=== PATIENT | male | born 1935 | race Caucasian/White ===

== ENCOUNTER 2025-02-28 14:27 | Inpatient (IN) | payer OTHER, SELFPAY ==
[2025-02-27 19:02] VITALS: BP 134/75
[2025-02-27 19:30] VITALS: BMI 21.6
--- NOTE | 2025-02-27 19:53 | ED.SKININJ ---
HPI-Injury
General
Chief Complaint: Skin Problem
Source: patient and family (son)
Exam Limitations: none
Time Seen by Provider: 02/27/25 19:17
Nursing documentation reviewed up to this point in time: agreed with
History of Present Illness-Injury
Is this injury a work related problem?: No
Is pt an associate of [facility]/[place]?: No
Initial Injury comments:
Patient states he was pulled down steps by dog 1 week ago. He sustained multiple abrasion and a laceration to left forearm. He was seen at [facility] and laceration was sutured. Today family reports arm is now red and swollen. Large amt of drainaged
coming from left forearm laceration site. Denies fever/chills. Brought to ED by son for eval.
Review of Systems
Review of Systems
Allergies reviewed?: Yes
All Other Systems: ROS reviewed and negative except as documented in HPI and ROS
Constitutional: Reports no symptoms
EENT: Reports no symptoms
Respiratory: Reports no symptoms
Cardiac: Reports no symptoms
ABD/GI: Reports no symptoms
: Reports no symptoms
Musculoskeletal: Reports joint pain (pain to left forearm)
Skin: Reports other (redness swelling and drainage for left forearm wounds)
Neurological: Reports no symptoms
Psychiatric: Reports no symptoms
Phy Exam
General Physical Exam
General Presentation: mild distress
General age: appears stated age
General Skin: warm and dry
General Habitus: elderly
General Mental: alert
Musculoskeletal Exam
Musculoskeletal Exam: neuro vasc intact
Skin Exam
Skin Exam: other (erythema swelling pain left forearm. Drainage from left forearm sutured wound)
Psychiatric Exam
Psychiatric Exam: normal mood/affect
Course
Orders/Labs/Results
Orders:
Orders
02/27/25 19:42
Forearm, Left 2 View [CR Forearm - Left 2 View] Urgent
Comment:
Reason For Exam: cellulitis
02/27/25 19:48
Vancomycin [Vancocin] 1,500 mg 0.9% Sodium Chloride 500 ml [Nss] 500 ml IV NOW
02/27/25 19:55
Complete Blood Count/With Diff Urgent
Comprehensive Metabolic Panel Urgent
Lactic Acid Urgent
Wound Culture [Wound/Abscess/Other Culture] Urgent
JJ Source: Arm
Specimen Description: Left
Date Specimen was Collected: 02/27/25
Time Specimen was Collected: 19:54
02/27/25 22:09
Admit/Transfer Patient As Directed
Co-Sign Provider:
Level of Care: Observation services
Assign to:: Medical/Surgical
Physician / Group: Nj
Diagnosis: cellulitis
Code Status As Directed
Resuscitation Status: Do not resuscitate
Reached after discussion with pt or family/Healthcare POA: Yes
DNR Bracelet Application ONCE
PRN Pain Medication Management As Directed
May give lesser potent ordered pain med per pt: Yes
preference::
Protocol:: Medication orders for pain may be administered in a
manner that supports deferring to patient preference
when the pt is:
- Requesting an ordered lesser potent pain medication.
Least to most potent pain medications are defined
as: acetaminophen < NSAID < tramadol < opioids
(morphine, oxycodone, hydromorphone).
- Requesting a lesser dose of the same medication IF
ORDERED.
- Requesting a less intrusive route of administration
if both routes are prescribed by the provider (PO <
IV).
02/27/25 23:00
Flush (0.9% Sodium Chloride) [Flush (Nss)] See Dose Instructions IV PER PROTOCOL
Abnormal Lab Results
02/27/25
19:55
WBC 10.9 H 10^3/uL
(4.8-10.8)
RBC 2.88 L 10^6/uL
(4.70-6.10)
Hgb 8.9 L g/dL
(13.0-18.0)
Hct 27.1 L %
(39.0-52.0)
MCV 94.1 H fL
(80.0-94.0)
MCHC 32.8 L g/dL
(33.0-37.0)
Absolute Neuts (auto) 8.2 H 10^3/uL
(1.4-6.5)
Absolute Monos (auto) 1.3 H 10^3/uL
(0.1-0.6)
Lymphocytes % 12.3 L %
(20.5-51.1)
Monocytes % 11.4 H %
(1.7-9.3)
Chloride 112 H mmol/L
(98-107)
BUN 34 H mg/dl
(9-20)
Glucose 110 H mg/dl
(70-99)
Total Protein 6.1 L g/dl
(6.3-8.2)
Albumin 3.3 L g/dl
(3.5-5.0)
02/27/25 19:55
02/27/25 19:55
Vital Signs
Initial and Last Documented VS:
Initial Vital Signs
Temp Pulse Resp BP Pulse Ox
98.0 F 65 15 134/75 97
02/27/25 19:02 02/27/25 19:02 02/27/25 19:02 02/27/25 19:02 02/27/25 19:02
Last Documented Vital Signs
Temp Pulse Resp BP Pulse Ox
98.0 F 65 15 138/63 97
02/27/25 19:02 02/27/25 19:02 02/27/25 19:02 02/27/25 20:02 02/27/25 20:15
*Critical Care Note
Total Time (30-74mins, 75-104mins- exclusive of procedures): Not Applicable
Update Note
Update Note:
Patient to ED with erythema pain discharge and swelling to left forearm.Symptoms started today. He sustained multiple abrasions and 1 laceration to forearm 1 week ago when he fell Laceration sutured, sutures still in place. I removed all 7
sutures from wound and site now draining a large amt of pus. CUlture sent. Vancomycin started. WIll admit to hospitalist service.
ED Attending Note
-
Portions of this chart may have been created with voice recognition software.� Occasional wrong word or��sound alike� substitutions may have occurred due to the inherent limitations of voice recognition software.
Discharge Plan
Departure
Patient Disposition: Admit
Date of Disposition: 02/27/25
Time of Disposition: 21:17
Presentation/result/management discussed w/ accepting MD/DO: Hospitalist
Patient with high blood pressure during this ER visit?: No
Condition: Fair
Covid-19: Not Applicable
Discharge Problem:
Cellulitis of arm, left
Prescriptions:
No Action
valsartan 80 mg Tablet
80 mg PO BID
pantoprazole 40 mg Tablet,Delayed Release (Dr/Ec)
40 mg PO DAILY
furosemide 20 mg Tablet
20 mg PO DAILY
Patient Comments:
takes at night time. is supposed to take 40 mg but states it was too much
metoprolol tartrate 25 mg Tablet
25 mg PO BID
Eliquis 5 mg Tablet
5 mg PO BID
Referrals:
Saud Nelson DO [Family Provider] -
Interventions
Interventions:
*Risk Screen - Suicide Last Done: 02/27/25 19:02
*General Assessment Last Done: 02/27/25 19:02
*Neglect/Abuse Screening Last Done: 02/27/25 19:02
*ED- Fall Risk Assessment Last Done: 02/27/25 19:30
*ED COVID-19 Vaccine History Last Done: 02/27/25 19:30
ED-Skin Assessment Last Done: 02/27/25 19:37
Discharge Date and Time
Print Language: GERMAN
[2025-02-27 20:02] VITALS: BP 138/63
[2025-02-27] MEDS: VANCOCIN 530 MG IV (20:05)
[2025-02-27 20:10] LABS: % Basophils 0.3 % (0-2); % Immature Granulocytes 0.3 % (0-0.5); % Lymphocytes 12.3 % (20.5-51.1); % Monocytes 11.4 % (1.7-9.3); % Neutrophils 74.7 % (42.2-75.2); Absolute Eosinophils 0.1 10^3/uL (0-0.7); Absolute Lymphocytes 1.3 10^3/uL (1.2-3.4); Absolute Monocytes 1.3 10^3/uL (0.1-0.6); Absolute Neutrophils 8.2 10^3/uL (1.4-6.5); Hematocrit 27.1 % (39.0-52.0); Hemoglobin 8.9 g/dL (13.0-18.0); Mean Corp Hgb Conc. 32.8 g/dL (33.0-37.0); Mean Corpuscular Hgb 30.9 pg (27.0-31.0); Mean Corpuscular Volume 94.1 fL (80.0-94.0); Mean Platelet Volume 10.3 fL (7.4-10.4); Nucleated Red Blood Cells % 0 % (-); Platelet Count 264 10^3/uL (130-400); Red Blood Cell Count 2.88 10^6/uL (4.70-6.10); Red Cell Dist. Width 14.1 % (11.5-14.5); White Blood Cell Count 10.9 10^3/uL (4.8-10.8)
[2025-02-27 20:21] LABS: Lactic Acid 0.7 mmol/L (0.7-2.0)
[2025-02-27 20:28] LABS: ALT (SGPT) 11 U/L (0-50); AST (SGOT) 18 U/L (17-59); Albumin 3.3 g/dl (3.5-5.0); Alkaline Phosphatase 67 U/L (38-126); Blood Urea Nitrogen 34 mg/dl (9-20); Calcium 8.4 mg/dl (8.4-10.2); Carbon Dioxide 25 mmol/L (22-30); Chloride 112 mmol/L (98-107); Estimated Creatinine Clearance 36 ml/min; Glucose 110 mg/dl (70-99); Sodium 140 mmol/L (135-145); Total Bilirubin 0.9 mg/dl (0.2-1.3); Total Protein 6.1 g/dl (6.3-8.2); eGFR 58.17
--- NOTE | 2025-02-27 21:47 | HPS.HSE ---
Family Physician
-
Family Physician: Saud Nelson
Chief Complaint
-
Left forearm swelling and redness
History of Present Illness
This is a 89-year-old male with past medical history significant for aortic insufficiency, BPH, hypertension, CAD, atrial fibrillation on anticoagulation who presents to the emergency department several days after a mechanical fall with swelling and
redness of the left forearm.
Patient reported falling down his flight of stairs after being pulled by a dog. He suffered lacerations and tear all along the left upper arm including the upper arm and forearm. He was seen at an outside hospital and had some dressing changes but
no antibiotics were started at the time. Patient had no fractures. He was discharged home. He apparently was doing well up until 1 day ago when he started having significant worsening of swelling in the forearm whereas he only had swelling in the
left hand previously. Reported new erythema. No drainage. He denies having any fevers or chills. He denies having any pain. He reports that his last antibiotics was about 2 months ago for urinary tract infection.
In the emergency department the patient was afebrile, blood pressure 138/60 with a pulse of 65 satting 98% on room air. X-ray of the forearm shows no fractures. No subcutaneous gas or fluid collection. There is chronic osteoarthritis. Soft
tissue swelling and two radiopaque foci in the soft tissues of the hand between the first and second metacarpals, calcifications versus tiny foreign bodies.
CBC white count 10.9, hemoglobin 8.9 with MCV of 94.41 and normal platelet count. Electrolytes BUN/creatinine were all in normal range.
Medical History
Past Medical History
Past Medical History: Reports Other
Additional Past Medical History:
Hypertension,
Atrial fibrillation
CAD
BPH
Aortic insufficiency
Past Surgical History: Reports Urological (TURP, lithotripsy 2006) and Other (Malignant melanoma excision)
Social History
Tobacco: Non-smoker
Alcohol: Occasional
Drug: None
Personal: Single
Living: With Family
Employment: Retired
Family History
Family History: Not pertinent
Allergies / Home Medications
Allergies reflects when Allergies were last updated in [facility].
Home Medications with original date entered in [facility]
Allergy/Medication List:
Allergies
Allergy/AdvReac Type Severity Reaction Status Date / Time
No Known Allergies Allergy Verified 02/27/25 19:55
Home Medications
apixaban 5 mg tablet (Eliquis) 5 mg PO BID 02/27/25
furosemide 20 mg tablet 20 mg PO DAILY 02/27/25
metoprolol tartrate 25 mg tablet 25 mg PO BID 02/27/25
pantoprazole 40 mg tablet,delayed release 40 mg PO DAILY 02/27/25
valsartan 80 mg tablet 80 mg PO BID 02/27/25
Review of Systems
-
History Source: Patient and Family
Constitutional: Reports No Symptoms
EENT: Reports No Symptoms
Respiratory: Reports No Symptoms
Cardiac: Reports No Symptoms
Abdomen/GI: Reports No Symptoms
: Reports No Symptoms
Musculoskeletal: Reports No Symptoms
Skin: Reports No Symptoms
Neurological: Reports No Symptoms
Endocrine: Reports No Symptoms
Hematologic/Lymphatic: Reports No Symptoms
Psych: Reports No Symptoms
Physical Exam
Vital Signs
Vital Signs
Temp Pulse Resp BP Pulse Ox
98.0 F 65 15 138/63 97
02/27/25 19:02 02/27/25 19:02 02/27/25 19:02 02/27/25 20:02 02/27/25 20:15
Physical Exam
General: Well Developed, Well Nourished, No Apparent Distress and Comfortable
HEENT: NormoCephalic, Anicteric, Moist mucous membranes and Other (old ecchymoses over the left face)
Respiratory: Clear
Cardiac: S1/S2 and Regular Rhythm
Breast: Deferred by me
GI: Soft, Non Tender, Non Distended and Normal Bowel Sounds
Rectal: Deferred by Provider
Genito-urinary: Deferred by me
Musculoskeletal: No Clubbing, No Cyanosis and No Edema
Skin: Other (excoriations and laceration of the left arm including the upper arm and forearm. There is significant soft tissue swelling of the forearm and hand. Erythematous and tender to palp.)
Neuro: AO x 3 and Nonfocal/grossly intact
Hematologic/Lymphatic: No Lymphadenopathy
Psych: Calm
Laboratory Results
-
02/27/25 19:55
02/27/25 19:55
Laboratory Results
Lactic Acid 0.7 mmol/L (0.7-2.0) 02/27/25 19:55
Total Bilirubin 0.9 mg/dl (0.2-1.3) 02/27/25 19:55
AST 18 U/L (17-59) 02/27/25 19:55
ALT 11 U/L (0-50) 02/27/25 19:55
Alkaline Phosphatase 67 U/L (38-126) 02/27/25 19:55
Data Reviewed
-
Diagnostic Radiology: Report Reviewed by me
Lab Data: Labs Reviewed by me
Old Records: Reviewed
Impression/Plan
-
IMPRESSION:
89 y.o male presenting to ED with left arm swelling and tenderness several days following fall and abrasive wounds of the left forearm concerning for seconary cellulitis. No bone involvement. Likely calcifications in the left hand versus foreign
body. Afebrile, HD stable and no history of resistant infections. No animal bites or punctures.
PLAN:
1. Cellulitis - Hand and forearm. Possible foreign body. No wound at the radiopaque sites.
- admit to med/surg
- blood cultures if febrile
- superficial wound cultures also sent
- IV vancomycin for now
- keep arm elevated
- pain control
- based on location of erythema, no wounds at the radiopaque site, these sites are unrelated to his current symptoms and wouldn't need to be removed. D/w Dr. Dennis. No surgical consult needed.
- wound consult for dressing changes
2. AFIB -
- continue eliquis
- metoprolol
- on ppi
3. HTN
- contnue furosemide
- continue valsartan bid
4. Anemia - Hgb 8.9, MCV 94, on eliquis. No history of bleeding per patient. Last Hgb on record here was 11.9 in 2012. HD stable.
- suspect mixed JONH and possible deficiency
- checking retic, iron panel and b12 levels
- if JONH,follow up colorectal screening as outpatient
DVT PPX - on apixaban
Code status - DNR
[2025-02-27 22:55] VITALS: BMI 21.9
[2025-02-27 23:15] VITALS: BP 132/61; BMI 21.9
[2025-02-27 23:24] VITALS: BMI 21.9
--- NOTE | 2025-02-27 23:30 | PTCARENOTE ---
Received patient from ED at approx 2255. Patient ambulated from stretcher to bed. AAA x3. No pain. Oriented to room. Call santoro in reach.
[2025-02-28 06:00] VITALS: BMI 21.7
[2025-02-28 06:47] LABS: Hematocrit 28.6 % (39.0-52.0); Hemoglobin 9.3 g/dL (13.0-18.0); Mean Corp Hgb Conc. 32.5 g/dL (33.0-37.0); Mean Corpuscular Hgb 30.9 pg (27.0-31.0); Mean Platelet Volume 10.2 fL (7.4-10.4); Platelet Count 261 10^3/uL (130-400); Red Blood Cell Count 3.01 10^6/uL (4.70-6.10); Reticulocyte Count 2.1 % (0.4-2.8)
[2025-02-28 07:22] LABS: Blood Urea Nitrogen 32 mg/dl (9-20); Calcium 8.3 mg/dl (8.4-10.2); Carbon Dioxide 24 mmol/L (22-30); Chloride 115 mmol/L (98-107); Estimated Creatinine Clearance 33 ml/min; Glucose 104 mg/dl (70-99); Iron 32 ug/dl (49-181); Potassium 3.9 mmol/L (3.5-5.1); Sodium 143 mmol/L (135-145); eGFR 52.84
[2025-02-28 07:30] VITALS: BP 152/71
[2025-02-28 07:31] LABS: Percent Saturation 11 % (20-50); Total Iron Binding Capacity 285 ug/dl (261-462)
--- NOTE | 2025-02-28 07:45 | PHA.VAN.IN ---
Assessment
- Assessment
Renal Function: Appears similar to baseline
AUC Dosing Plan
- Dosing Variables
Dosing Weight (kg): 59
Dosing CrCl (ml/min): 33
Vd coefficient (L/kg): 0.7
- Empiric Dosing
Initial / Loading Dose: 1500 mg x 1 dose 02/27/25 @1955
Maintenance Regimen: 750 mg q24 to start today
Estimated AUC (mcg*h/mL): 580
Estimated Peak (mcg*h/mL): 34
Estimated Trough (mcg/ml): 16.4
Estimated Half Life (H): 21.8
- Monitoring
No levels ordered at this time: consider levels when pt nears ss
Pharmacokinetics Vancomycin I
- -
Patient Age: 89
Patient Sex: Male
Vancomycin Day #: 1
Indication: Skin And Soft Tissue
Requesting Provider: Nj
Height / Weight:
Height 5 ft 5 in
Actual Weight 59.222 kg
Pertinent Past Medical History: mechanical fall
- Vital Signs / Lab Results
Temp Pulse Resp BP Pulse Ox
98.8 F 66 14 132/61 97
02/27/25 23:15 02/27/25 23:15 02/27/25 23:15 02/27/25 23:15 02/27/25 23:15
Lab Results - Hematology
02/27/25 02/28/25
19:55 06:18
WBC 10.9 H 9.0
Lab Results - Chemistry
02/27/25 02/28/25
19:55 06:18
BUN 34 H 32 H
Creatinine 1.2 1.3
Estimated Creat Clear 36 33
Albumin 3.3 L
02/27/25
19:55
Lactic Acid 0.7
[2025-02-28] MEDS: DIOVAN 80 MG PO ×2 (08:35→20:11)
[2025-02-28] MEDS: LASIX 20 MG PO (08:36)
[2025-02-28] MEDS: ELIQUIS 5 MG PO ×2 (08:36→20:11)
[2025-02-28] MEDS: LOPRESSOR 25 MG PO ×2 (08:36→20:11)
[2025-02-28] MEDS: PROTONIX 40 MG PO (08:36)
[2025-02-28 09:04] LABS: Vitamin B12 269 pg/ml (239-931)
[2025-02-28] MEDS: VANCOCIN 150 IV (11:06)
--- NOTE | 2025-02-28 12:26 | CM ---
CM reviewed chart, patient seen bedside, initial assessment completed. Patient currently staying with his son in a multiple level home, about 6 steps to enter, full flight of steps to bedroom. Patient typically lives independently in a split level
home, one step to enter with railing, no issues with steps. Patient denies use of DME, reports he does have walkers in the home from his . Patient reports SNF in past, about three years ago ([facility]). Patient confirms PCP Saud Nelson,
pharmacy [facility] through [facility] form verbally reviewed, provided with copy, placed in chart.
CM received call from Patty [facility], patient is current with [facility] services, will send CHRISTA referral. CM will continue to follow for all discharge planning needs.
Plan; home with family, CHRISTA AGEE
Patty AGEE
--- NOTE | 2025-02-28 13:21 | WOUNDNOTE ---
L ANTERIOR DISTAL ARM
--- NOTE | 2025-02-28 13:21 | WOUNDNOTE ---
L PROXIMAL ARM NEAR ELBOW
--- NOTE | 2025-02-28 13:21 | WOUNDNOTE ---
L MEDIAL MID ARM
--- NOTE | 2025-02-28 13:25 | WOUNDNOTE ---
[facility] RN note: Patient admitted with cellulitis of L arm and skin tears.
See H&P for complete history.
PMH: This is a 89-year-old male with past medical history significant for aortic insufficiency, BPH, hypertension, CAD, atrial fibrillation on anticoagulation who presents to the emergency department several days after a mechanical fall with
swelling and redness of the left forearm.
Wound Location and type/assessment: Patient admitted with: L arm skin tears/abrasions after falling on concrete steps. 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 L
arm with multiple open areas, gardner slough, no odor, draining serosanguineous of moderate amt. Wound culture results pending. L arm x ray negative gas or fractures. L hand and arm with edema, much less redness states son at bedside. Patient has a tiny
scab abrasion on L knee, R intact. R heel reported as stage 1 PI, adhesive foam in use and patient's own compression stocking. Son states he has Lymphedema in R leg and uses compression stocking daily. Turns self in bed, sacrum and L heel intact.
Appetite: Fair, dietary following. Encouraged protein in diet.
Pressure redistribution devices in place: On Versa care air bed, Pillows under L arm, encouraged arm elevation.
Plan: Applied Xeroform, alginate, Abd pad and Kerlix with beto wrap or Tubigrip size F daily. Teaching done with patient and son's at bedside, answered all questions. Will confirm orders with hospitalist and updated nurse Shanna.
Updated care plan and will follow as needed.
Note to case management of equipment requested for discharge: continue VN
Recommend follow up at wound care center upon discharge.
--- NOTE | 2025-02-28 14:14 | W.PN.HOSP.TC ---
Today's Communication/Plan
-
Wound care.
IV antibiotics
Assessment / Plan
Assessment / Plan
Impression:
Left arm cellulitis complicated with multiple abrasions and purulence. Status post fall.
Conditions prior to admission:
Atrial fibrillation of unknown duration and chronicity.
Anticoagulation with Eliquis.
Essential hypertension.
Chronic anemia with iron deficiency
Plan:
Left upper extremity cellulitis with skin abrasions and purulence.
Status post fall.
Afebrile with normal white count with no evidence of generalized symptoms of infection.
No evidence of deep tissue collection.
Continue wound care.
Antibiotic therapy initiated with vancomycin, given extensive skin and soft tissue involvement broaden antibiotics spectrum with addition of Zosyn
Monitor closely for response. Consider additional imaging with CT if not improving
Check hemoglobin A1c
Atrial fibrillation of unknown duration and chronicity.
Check baseline ECG.
Continue metoprolol
Continue Eliquis
Essential hypertension.
Continue metoprolol, losartan, furosemide
Chronic anemia with baseline hemoglobin around 8�9.
MCV 94.
Mild B12 deficiency, start intramuscular supplementation
Mild iron deficiency baseline, start IV iron
Outpatient GI workup recommended
Anticipated Discharge: > 48 hours
Subjective/Interval History
-
Date of Service: February 28, 2025
Objective Data
-
Labs:
Laboratory Results
02/28/25
06:18
WBC 9.0
Hgb 9.3 L
Hct 28.6 L
Plt Count 261
Sodium 143
Potassium 3.9
Chloride 115 H
Carbon Dioxide 24
BUN 32 H
Creatinine 1.3
Glucose 104 H
Calcium 8.3 L
Vital Signs:
Vital Signs
Temp Pulse Resp BP Pulse Ox
98.1 F 64 16 152/71 98
02/28/25 07:30 02/28/25 08:36 02/28/25 07:30 02/28/25 08:36 02/28/25 07:30
I&O
02/27/25 02/28/25 03/01/25
06:59 06:59 06:59
Intake Total 350 / 350
Balance 350 / 350
Physical Exam
-
General: Well Developed and No Apparent Distress
HEENT: Normocephalic, Atraumatic and Moist Mucous Membranes
Respiratory: Clear to Auscultation
Cardiac: Regular Rhythm and S1/S2; Negative Murmur, Rub or Gallop
GI: Soft, Nontender, Nondistended and Normal Bowel Sounds; Negative Organomegaly
Rectal: Deferred by Provider
Musculoskeletal: No Clubbing, No Cyanosis and No Edema
Skin: Other (Left arm with multiple abrasions, erythema and induration with purulence); Negative Rash
Neuro: Nonfocal/Grossly Intact
[2025-02-28] MEDS: FERRLECIT 110 MG IV (15:05)
[2025-02-28 15:47] VITALS: BMI 21.7
[2025-02-28 15:52] VITALS: BP 174/85
[2025-02-28] MEDS: ZOSYN 50 IV ×2 (15:56→22:22)
[2025-02-28] MEDS: CYANOCOBALAMIN 1000 MCG IM (15:56)
[2025-02-28 20:10] VITALS: BP 137/62
[2025-02-28 23:30] VITALS: BP 136/64
[2025-03-01] MEDS: ZOSYN 50 IV ×4 (03:40→21:58)
[2025-03-01] MEDS: VANCOCIN 150 IV (05:52)
[2025-03-01 06:00] VITALS: BMI 22.0
[2025-03-01 08:18] VITALS: BP 138/66
--- NOTE | 2025-03-01 08:20 | PHA.VAN.FU ---
Vancomycin Assessment / Plan
- Assessment
Renal Function: Stable
WBC's are: Trending Down
In the past 24 hrs, patient has been: Afebrile
Concomitant Antimicrobials: piperacillin/tazobactam
- Dosing Plan
Continue: Vanc 750mg Q24H
- Monitoring Plan
No level(s) ordered at this time: consider levels in next few days
- Follow Up
Pharmacy will continue to follow.
Vancomycin Follow UP
- -
Patient Age: 89
Patient Sex: Male
Vancomycin Day #: 2
Indication: Skin And Soft Tissue
Requesting Provider: Nj
Pertinent Antimicrobial Allergies:
NKDA
Height / Weight:
Height 5 ft 5 in
Actual Weight 60.044 kg
- Vital Signs / Lab Results
Temp Pulse Resp BP Pulse Ox
98 F 61 16 138/66 98
03/01/25 08:18 03/01/25 08:18 03/01/25 08:18 03/01/25 08:18 03/01/25 08:18
Lab Results - Hematology
02/27/25 02/28/25
19:55 06:18
WBC 10.9 H 9.0
Lab Results - Chemistry
02/27/25 02/28/25
19:55 06:18
BUN 34 H 32 H
Creatinine 1.2 1.3
Estimated Creat Clear 36 33
Albumin 3.3 L
02/27/25
19:55
Lactic Acid 0.7
Microbiology Results
02/27/25 23:40 MRSA Screen - Final
Nose No Methicillin Resistant Staphylococcus aureus isolated.
02/27/25 19:55 Gram Stain - Preliminary
Arm - Left
[2025-03-01 09:08] LABS: Glycohemoglobin (HgbA1c) 5.6 % (4.0-5.6)
[2025-03-01] MEDS: LOPRESSOR 25 MG PO ×2 (09:23→20:34)
[2025-03-01] MEDS: PROTONIX 40 MG PO (09:23)
[2025-03-01] MEDS: DIOVAN 80 MG PO ×2 (09:23→20:34)
[2025-03-01] MEDS: ELIQUIS 5 MG PO ×2 (09:23→20:34)
[2025-03-01] MEDS: LASIX 20 MG PO (09:23)
[2025-03-01] MEDS: CYANOCOBALAMIN 1000 MCG IM (09:24)
--- NOTE | 2025-03-01 10:16 | W.PN.HOSP.TC ---
Today's Communication/Plan
-
Continue IV antibiotics
Follow-up wound care
PT eval
Assessment / Plan
Assessment / Plan
NAD
Scleral Anicteric
Left side of face noted areas of ecchymosis that appear to be healing
MMM
No JVD
CTABL
RRR, S1/S2
Soft, NT, ND, BS+
Warm, Dry
Left upper extremity wrapped in gauze and bandage. Able to make a fist soft compartments
Right lower extremity chronically swollen
AAOx3
Calm
Impression:
Left arm cellulitis complicated with multiple abrasions and purulence. Status post fall.
Conditions prior to admission:
Atrial fibrillation of unknown duration and chronicity.
Anticoagulation with Eliquis.
Essential hypertension.
Chronic anemia with iron deficiency
Plan:
Left upper extremity cellulitis with skin abrasions and purulence.
Status post fall.
Afebrile with normal white count with no evidence of generalized symptoms of infection.
No evidence of deep tissue collection nor of compartment syndrome.
Continue wound care.
Continue Zosyn and vancomycin likely plan to transition to doxycycline and Augmentin to complete 14-day course
Wound culture pending
MRSA negative
Monitor closely for response. Consider additional imaging with CT if not improving
A1c 5.6
Atrial fibrillation of unknown duration and chronicity.
Check baseline ECG.
Continue metoprolol
Continue Eliquis
Essential hypertension.
Continue metoprolol, losartan, furosemide
Chronic anemia with baseline hemoglobin around 8�9.
MCV 94.
Mild B12 deficiency, start intramuscular supplementation
Mild iron deficiency baseline, start IV iron
Outpatient GI workup recommended
Anticipated Discharge: Within 24 hours
Subjective/Interval History
-
Date of Service: March 01, 2025
Seen and examined. States his left arm pain has significantly proved by 80%
No new complaints otherwise. No acute overnight events. He is able to make a fist
Objective Data
-
Vital Signs:
Vital Signs
Temp Pulse Resp BP Pulse Ox
98 F 61 16 138/66 98
03/01/25 08:18 03/01/25 08:18 03/01/25 08:18 03/01/25 08:18 03/01/25 08:18
I&O
02/28/25 03/01/25 03/02/25
06:59 06:59 06:59
Intake Total 350 / 350 1150 / 1150
Balance 350 / 350 1150 / 1150
--- NOTE | 2025-03-01 13:04 | CM ---
CM reviewed chart, patient seen bedside, discussed patient upgraded to inpatient status, reviewed IMM, provided with copy, will place in chart. Patient inquiring about discharge. Patient plan remains home with Patyt GOODWIN. CM will continue to
follow for all discharge planning needs.
Plan; home with son, CHRISTA Keyesdavid AGEE
Patty AGEE
[2025-03-01] MEDS: FERRLECIT 110 MG IV (14:37)
--- NOTE | 2025-03-01 16:07 | DOWNTIME ---
There was a [employer] Integrated Pest Management Technician Downtime on 03/01/2025 from 1230 to 03/01/2025 at 1550. Downtime documentation of patient's care, including medication administrations, has been reconciled in the electronic record per guidelines. Refer to the
patient's paper chart under the miscellaneous tab to see printed paper medication records and downtime forms.
[2025-03-01 16:35] VITALS: BP 126/59
[2025-03-01 20:33] VITALS: BP 117/61
[2025-03-01 23:44] VITALS: BP 131/69
[2025-03-02] MEDS: ZOSYN 50 IV ×4 (03:00→21:44)
[2025-03-02] MEDS: VANCOCIN 150 IV (05:06)
[2025-03-02 06:00] VITALS: BMI 21.8
[2025-03-02 07:00] VITALS: BP 156/89
[2025-03-02] MEDS: DIOVAN 80 MG PO ×2 (09:06→20:16)
[2025-03-02] MEDS: ELIQUIS 5 MG PO ×2 (09:07→20:20)
[2025-03-02] MEDS: LASIX 20 MG PO (09:07)
[2025-03-02] MEDS: PROTONIX 40 MG PO (09:07)
[2025-03-02] MEDS: LOPRESSOR 25 MG PO ×2 (09:08→20:20)
[2025-03-02] MEDS: CYANOCOBALAMIN 1000 MCG IM (09:08)
--- NOTE | 2025-03-02 11:33 | PN.CDI ---
CDI
- -
CDI:
Physician Documentation Request
Admit Date: 02/28/25 14:27
Dear Doctor Kaila,
Please review the following and provide your response in the progress notes.
Clinical Indicators:
The diagnosis of bifascicular block was included in the signed 02/28 EKG
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
- 'Bifascicular block'
Please indicate in your progress notes if you are in agreement that the above diagnosis is valid for this patient:
____ - Bifascicular block is a valid diagnosis (Please include it in your progress notes)
____ - Bifascicular block is not a valid diagnosis for this patient
____ - Bifascicular block is not yet confirmed but remains a suspected condition
____ - Other
Use of terms such as suspected, likely, concern for, or probable are acceptable for a diagnosis that is being evaluated, monitored or treated as if it exists and can be coded in the inpatient setting, when documented at the time of discharge.
Thank you,
Ryne Montgomery RN
CDI Specialist
Please use your independent medical judgment in providing your response.
--- NOTE | 2025-03-02 11:37 | PN.CDI ---
CDI
- -
CDI:
Physician Documentation Request
Admit Date: 02/28/25 14:27
Dear Doctor Kaila,
Please review the following and provide your response in the progress notes.
Clinical Indicators:
- Wound note indicates Stage 1 right heel pressure injury, POA
Physician documentation of the type and location of wounds is required for compliant documentation. Based on the above clinical findings and your assessment, please provide the following in your progress note:
1. Location of the ulcer/wound, including laterality.
2. Type (etiology) of ulcer/wound:
- Diabetic ulcer
- Arterial (ischemic) ulcer
- Traumatic wound
- Venous stasis ulcer
- Pressure (decubitus) ulcer
- Other
Use of terms such as suspected, likely, concern for, or probable (associated with a specific diagnosis that is being evaluated, monitored, or treated as if it exists) are acceptable and can be coded in the inpatient setting, when documented at the
time of discharge.
Thank you,
Ryne Montgomery RN
CDI Specialist
Please use your independent medical judgment in providing your response.
*Source: National Pressure Ulcer Advisory Panel (NPUAP)
[2025-03-02 15:00] VITALS: BP 143/69
--- NOTE | 2025-03-02 15:23 | PHA.VAN.FU ---
Vancomycin Assessment / Plan
- Assessment
Renal Function: No New Labs Today
In the past 24 hrs, patient has been: Afebrile
Concomitant Antimicrobials: piperacillin/tazobactam
- Dosing Plan
Continue: Vanc 750mg Q24H
- Monitoring Plan
No level(s) ordered at this time: consider levels in next few days
- Follow Up
Pharmacy will continue to follow.
Vancomycin Follow UP
- -
Patient Age: 89
Patient Sex: Male
Vancomycin Day #: 3
Indication: Skin And Soft Tissue
Requesting Provider: Nj
Pertinent Antimicrobial Allergies:
NKDA
Height / Weight:
Height 5 ft 5 in
Actual Weight 59.421 kg
Pertinent Past Medical History: mechanical fall
- Vital Signs / Lab Results
Temp Pulse Resp BP Pulse Ox
97.5 F 79 19 156/89 99
03/02/25 07:00 03/02/25 09:08 03/02/25 07:00 03/02/25 09:08 03/02/25 07:00
Lab Results - Hematology
02/27/25 02/28/25
19:55 06:18
WBC 10.9 H 9.0
Lab Results - Chemistry
02/27/25 02/28/25
19:55 06:18
BUN 34 H 32 H
Creatinine 1.2 1.3
Estimated Creat Clear 36 33
Albumin 3.3 L
02/27/25
19:55
Lactic Acid 0.7
Microbiology Results
02/27/25 19:55 Wound Culture - Preliminary
Arm - Left Streptococcus pyogenes
Staphylococcus aureus
Gram Stain - Preliminary
02/27/25 23:40 MRSA Screen - Final
Nose No Methicillin Resistant Staphylococcus aureus isolated.
--- NOTE | 2025-03-02 15:24 | W.PN.HOSP.TC ---
Today's Communication/Plan
-
CT scan
IV antibiotic
Assessment / Plan
Assessment / Plan
Impression:
Left arm cellulitis complicated with multiple abrasions and purulence. Status post fall.
Conditions prior to admission:
Atrial fibrillation of unknown duration and chronicity.
Anticoagulation with Eliquis.
Essential hypertension.
Chronic anemia with iron deficiency
Plan:
Left upper extremity cellulitis with skin abrasions and purulence.
Status post fall.
Afebrile with normal white count with no evidence of generalized symptoms of infection.
No evidence of deep tissue collection nor of compartment syndrome.
Remains with significant area of erythema and induration in the left forearm with concern for soft tissue collection
Wound culture with strep pyogenous and staph species which is likely MSSA pending final sensitivities
CT scan of the upper extremity rule out deep soft tissue collection
Continue IV antibiotics: Vancomycin/Zosyn for another 24 hours and pending imaging.
A1c 5.6
Atrial fibrillation of unknown duration and chronicity.
Check baseline ECG.
Continue metoprolol
Continue Eliquis
Essential hypertension.
Continue metoprolol, losartan, furosemide
Chronic anemia with baseline hemoglobin around 8�9.
MCV 94.
Mild B12 deficiency, start intramuscular supplementation
Mild iron deficiency baseline, start IV iron
Outpatient GI workup recommended
Anticipated Discharge: 24 - 48 hours
Subjective/Interval History
-
Date of Service: March 02, 2025
Objective Data
-
Vital Signs:
Vital Signs
Temp Pulse Resp BP Pulse Ox
97.5 F 79 19 156/89 99
03/02/25 07:00 03/02/25 09:08 03/02/25 07:00 03/02/25 09:08 03/02/25 07:00
I&O
03/01/25 03/02/25 03/03/25
06:59 06:59 06:59
Intake Total 1149
Balance 1150 / 1149
Physical Exam
-
General: Well Developed and No Apparent Distress
HEENT: Normocephalic, Atraumatic and Moist Mucous Membranes
Respiratory: Clear to Auscultation
Cardiac: Regular Rhythm and S1/S2; Negative Murmur, Rub or Gallop
GI: Soft, Nontender, Nondistended and Normal Bowel Sounds; Negative Organomegaly
Rectal: Deferred by Provider
Musculoskeletal: No Clubbing, No Cyanosis and No Edema
Skin: Other (Left arm with multiple abrasions, erythema and induration with purulence); Negative Rash
Neuro: Nonfocal/Grossly Intact
[2025-03-02] MEDS: FERRLECIT 110 MG IV (15:28)
[2025-03-02 23:05] VITALS: BP 145/75
[2025-03-03] MEDS: ZOSYN 50 IV ×2 (04:13→10:10)
[2025-03-03] MEDS: TYLENOL 650 MG PO (04:18)
[2025-03-03] MEDS: VANCOCIN 150 IV (05:26)
[2025-03-03 06:00] VITALS: BMI 22.0
[2025-03-03 07:00] VITALS: BP 140/68
[2025-03-03 07:12] LABS: % Basophils 0.3 % (0-2); % Immature Granulocytes 0.9 % (0-0.5); % Lymphocytes 11.7 % (20.5-51.1); % Neutrophils 77.1 % (42.2-75.2); Absolute Eosinophils 0.4 10^3/uL (0-0.7); Absolute Immature Granulocytes 0.1 10^3/uL (0-0.05); Absolute Lymphocytes 1.4 10^3/uL (1.2-3.4); Absolute Monocytes 0.8 10^3/uL (0.1-0.6); Hematocrit 26.3 % (39.0-52.0); Hemoglobin 8.7 g/dL (13.0-18.0); Mean Corp Hgb Conc. 33.1 g/dL (33.0-37.0); Mean Corpuscular Hgb 31.1 pg (27.0-31.0); Mean Corpuscular Volume 93.9 fL (80.0-94.0); Mean Platelet Volume 9.5 fL (7.4-10.4); Nucleated Red Blood Cells % 0 % (-); Platelet Count 325 10^3/uL (130-400); Red Cell Dist. Width 13.9 % (11.5-14.5); White Blood Cell Count 11.7 10^3/uL (4.8-10.8)
[2025-03-03] MEDS: LOPRESSOR 25 MG PO ×2 (07:47→21:20)
[2025-03-03] MEDS: ELIQUIS 5 MG PO (07:47)
[2025-03-03] MEDS: DIOVAN 80 MG PO ×2 (07:47→21:20)
[2025-03-03] MEDS: PROTONIX 40 MG PO (07:47)
[2025-03-03] MEDS: CYANOCOBALAMIN 1000 MCG IM (07:50)
[2025-03-03 08:06] LABS: Blood Urea Nitrogen 21 mg/dl (9-20); Calcium 8.3 mg/dl (8.4-10.2); Carbon Dioxide 25 mmol/L (22-30); Chloride 112 mmol/L (98-107); Estimated Creatinine Clearance 33 ml/min; Glucose 101 mg/dl (70-99); Potassium 3.7 mmol/L (3.5-5.1); Sodium 144 mmol/L (135-145); eGFR 52.84
--- NOTE | 2025-03-03 11:22 | WOUNDNOTE ---
[facility] RN note: Patient's L wrist wound raised with moderate sanguinous drainage and 1 black suture noted. L arm dressing changed. L arm Camilo reapplied. LUE on pillow. [place] texted Dr. Bright requesting surgeon consult to evaluate for abscess, CT
scan result in. Patient's sacrum blanchable red. Patient is mobile. Instructed patient to lie more on his sides. Heels off bed with pillow. Patient on a [employer] air bed. Appetite good. He plans to stay with one of his sons if he goes home when
discharged. Suggested he request VN from Case Management and suggested he follow up at [facility]. Will follow as needed.
--- NOTE | 2025-03-03 11:37 | CM ---
international sales manager reviewed patient's chart and patient is for possible discharge tomorrow after HD, script received from ID physician and faxed to [facility], [facility]
Plan; home with son, CHRISTA AGEE
Patty AGEE
--- NOTE | 2025-03-03 12:15 | CM ---
Chart reviewed and caser in met with patient, patient is ambulating hallways, [facility]
Plan; home with son, CHRISTA AGEE
Patty AGEE
--- NOTE | 2025-03-03 12:26 | CON.GS ---
Addendum entered and electronically signed by Jayson Fontaine MD 03/03/25 14:08:
Patient seen and examined with surgical BOTTOM TURNER. Agree with documented surgical consultation in addition to notes here.
Patient's son at bedside.
HPI: 89-year-old male with recent mechanical fall and resultant left upper extremity/forearm laceration as well as abrasions. These were sutured at outside emergency department from which she was initially recovering well. He was admitted to
[facility] 02/27/2025 secondary to worsening pain and swelling. Reportedly most of the sutures were removed upon presentation with purulent drainage. Surgical consultation requested today after CT imaging showed possible phlegmonous
collection and continued discomfort as well as some bleeding at the site. The patient remains actively anticoagulated on therapeutic Eliquis for history of A-fib.
AFVSS
NAD AAO x 3
Left upper extremity dressing taken down. Along the extensor surface of the forearm there is an area of skin necrosis and hematoma about 2.5 x 1 cm. Surrounding light erythema and warmth to touch. No purulence. Other superficial abrasions noted.
White blood cell count 11.7
Left arm culture 02/27 Staph aureus methicillin sensitive and Streptococcus pyogenes
Assessment/plan: 89-year-old male with a left upper extremity traumatic laceration now admitted with resolving cellulitis but wound dehiscence/sloughing and hematoma in the setting of therapeutic anticoagulation on Eliquis.
At bedside the remaining nylon stitch was removed. Skin edges easily with manual pressure allowing evacuation of underlying hematoma. No purulence. No additional necrotic tissue noted for debridement. Oozing from the old laceration
site which was controlled with manual pressure and application of Surgicel into the wound base. Subsequent 4 x 4 gauze packing, Kerlix and Camilo wrap applied as hemostatic dressing.
Continue current antibiotics
Dressing changed tomorrow with further wound recommendations anticipating local wound care measures and no further debridement necessary in the short-term.
Hold Eliquis today and tomorrow a.m. to limit ongoing oozing from laceration wound
Will follow
Updated hospitalist
Original Note:
Consultation
-
Date/Time Consultation Performed: 03/03/25 1250
Medical History
-
Chief Complaint: left arm swelling
History of Present Illness:
This is a 89-year-old male with past medical history significant for aortic insufficiency, BPH, hypertension, CAD, atrial fibrillation on Eliquis (LD 03/03 am) who initially presented through the [facility] emergency department after a mechanical fall
almost 2 weeks ago (02/18/25) caused by a dog pulling him over some brick steps. He and his son report a CT of the head was negative at that time as were xray's to rule out fracture. He suffered a deep skin laceration to his left forearm which was
sutured and he was discharged with local wound care. He notes he did wait for quite a bit in the waiting room and felt as though he lost a lot of blood during that time with dizziness the following few days. He presented through the ED on 02/27
d/t worsening pain and edema to the site. All but one of the sutures was removed upon presentation as purulent discharge was noted from the wound. He has been followed by wound care with local dressing changes on IV abx since presentation. He is
seen today d/t concern for developing abscess.
Past Medical History
Past Medical History: Arrhythmias (afib), CAD, Cancer (skin melenoma), Hypercholesterolemia, Valvular Disease (aortic insufficiency) and Other (bph, polymyalgia rheumatica, diverticular bleed/GIB)
Past Surgical History: Cardiac (coronary stent) and Urological (TURP, lithotripsy)
Social History
Tobacco: Non-Smoker
Alcohol: Occasional
Family History
Family History: Reviewed & Not Pertinent
Allergies / Home Medications
Allergy/AdvReac Type Severity Reaction Status Date / Time
No Known Allergies Allergy Verified 02/27/25 19:55
�Medication �Instructions �Recorded �Confirmed �Type
apixaban 5 mg tablet (Eliquis) 5 mg PO BID Blood Clot 02/27/25 02/27/25 History
Prevention/Tx
furosemide 20 mg tablet 20 mg PO DAILY Fluid 02/27/25 02/27/25 History
Retention/Swelling
metoprolol tartrate 25 mg tablet 25 mg PO BID Blood Pressure 02/27/25 02/27/25 History
pantoprazole 40 mg tablet,delayed 40 mg PO DAILY Gastrointestinal 02/27/25 02/27/25 History
release Issue
valsartan 80 mg tablet 80 mg PO BID Blood Pressure 02/27/25 02/27/25 History
Review of Systems
-
History Source: Patient
All other systems: Negative unless noted
A 10 point review of systems was completed, and was negative except as per HPI.
Physical Exam
Vital Signs
Temp Pulse Resp BP Pulse Ox
97.8 F 70 18 140/68 98
03/03/25 07:00 03/03/25 07:00 03/03/25 07:00 03/03/25 07:00 03/03/25 07:00
03/02/25 03/03/25 03/04/25
06:59 06:59 06:59
Actual Weight 59.421 kg 59.959 kg
Body Mass Index (BMI) 22.0
Lab Results
03/03/25 06:44
03/03/25 06:44
WBC 11.7 10^3/uL (4.8-10.8) H 03/03/25 06:44
Hgb 8.7 g/dL (13.0-18.0) L 03/03/25 06:44
Hct 26.3 % (39.0-52.0) L 03/03/25 06:44
Plt Count 325 10^3/uL (130-400) D 03/03/25 06:44
Abs Immat Gran (auto) 0.1 10^3/uL (0-0.05) H 03/03/25 06:44
Neutrophils % 77.1 % (42.2-75.2) H 03/03/25 06:44
Physical Exam
General: Well Developed and No Apparent Distress
HEENT: Other (left periorbital ecchymosis)
Respiratory: Non Labored Respirations
GI: Soft and Non Tender
Skin: Warm and Other (left arm with several healing superficial lacerations, distal forearm with raised, fluctuant wound with surrounding skin tear. )
Neuro: Awake, Alert and AO x 3
Psych: Calm
Data Reviewed
-
Radiology: Image Personally Visualized and interpreted, Report Reviewed by me, Discussed with Physician, Discussed with Nurse and Discussed with Patient
CT Scan: Image Personally Visualized and interpreted, Report Reviewed by me, Discussed with Physician and Discussed with Patient
Labs: Labs Reviewed by me, Discussed with Physician and Discussed with Patient
Old Records: Reviewed
Assessment / Plan
-
Mr Ruiz is an 89 yo male who suffered a mechanical fall on Eliquis almost two weeks with a laceration to his left forearm which was sutured at [facility]. He presents d/t increased swelling and erythema with purulent drainage from the site. Sutures were
removed in the ED on 02/27 and cultures taken which have grown MSSA and Strep Pyogenes. He has noted leukocytosis. Afebrile, VSS. CT imaging yesterday afternoon demonstrating a ? developing abscess to the left distal forearm of 1.9 x 1.4 x 3.2 cm
with associated left axillary lymph node enlargement.
--Hematoma drained at bedside through existing opening in skin and final suture removed, packed with Surgicel as some oozing noted
--Hold Eliquis to prevent further bleeding.
--CBC in Am
--C/W abx, currently on Unasyn which is culture sensitive
[2025-03-03] MEDS: FERRLECIT 110 MG IV (13:58)
[2025-03-03] MEDS: UNASYN IV ×2 (14:19→21:20)
[2025-03-03 14:40] VITALS: BP 128/64; PULSE 61
--- NOTE | 2025-03-03 15:28 | W.PN.HOSP.TC ---
Today's Communication/Plan
-
General surgery evaluation noted with no indication for additional debridement.
Hold Eliquis.
Continue IV antibiotics
Continue wound care
Assessment / Plan
Assessment / Plan
Impression:
Left arm cellulitis complicated with multiple abrasions and purulence. Status post fall.
Conditions prior to admission:
Atrial fibrillation of unknown duration and chronicity.
Anticoagulation with Eliquis.
Essential hypertension.
Chronic anemia with iron deficiency
Stage 1 right heel pressure injury, POA
Plan:
Left upper extremity cellulitis with infected forearm hematoma
Status post fall with forearm laceration sutured in outside hospital weeks prior to presentation
Afebrile with normal white count with no evidence of generalized symptoms of infection.
No evidence of deep tissue collection nor of compartment syndrome or necrotizing fasciitis
CT scan findings consistent with small collection
General surgery input appreciated confirming infected hematoma with no additional necrotic tissues and no indication for additional debridement. Remaining suture had been removed
Hold Eliquis for 24 to 48 hours and monitor closely.
Wound culture with MSSA and strep pyogenous basis.
Antibiotics consolidated from vancomycin and Zosyn to Unasyn according to sensitivities
Continue wound care
A1c 5.6
Atrial fibrillation of unknown duration and chronicity.
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
Continue metoprolol
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 Placed on hold given forearm hematoma on 03/03.
Essential hypertension.
Continue metoprolol, losartan, furosemide
Chronic anemia with baseline hemoglobin around 8�9.
MCV 94.
Mild B12 deficiency, start intramuscular supplementation
Mild iron deficiency baseline, start IV iron
Outpatient GI workup recommended
Anticipated Discharge: > 48 hours
Subjective/Interval History
-
Date of Service: March 03, 2025
Objective Data
-
Labs:
Laboratory Results
05/30/25
06:44
WBC 11.7 H
Hgb 8.7 L
Hct 26.3 L
Plt Count 325 D
Sodium 144
Potassium 3.7
Chloride 112 H
Carbon Dioxide 25
BUN 21 H
Creatinine 1.3
Glucose 101 H
Calcium 8.3 L
Vital Signs:
Vital Signs
Temp Pulse Resp BP Pulse Ox
97.8 F 70 18 140/68 98
03/03/25 07:00 03/03/25 07:00 03/03/25 07:00 03/03/25 07:00 03/03/25 07:00
I&O
03/02/25 03/03/25 03/04/25
06:59 06:59 06:59
Intake Total 2320 / 2320 490 / 490
Balance 2320 / 2320 490 / 490
Physical Exam
-
General: Well Developed and No Apparent Distress
HEENT: Normocephalic, Atraumatic and Moist Mucous Membranes
Respiratory: Clear to Auscultation
Cardiac: Regular Rhythm and S1/S2; Negative Murmur, Rub or Gallop
GI: Soft, Nontender, Nondistended and Normal Bowel Sounds; Negative Organomegaly
Rectal: Deferred by Provider
Musculoskeletal: No Clubbing, No Cyanosis and No Edema
Skin: Other (Left arm with multiple abrasions, erythema and induration with purulence); Negative Rash
Neuro: Nonfocal/Grossly Intact
[2025-03-03 23:03] VITALS: BP 138/66
[2025-03-04] MEDS: UNASYN IV ×3 (02:19→13:13)
[2025-03-04 06:00] VITALS: BMI 22.2
[2025-03-04 07:00] VITALS: BP 108/73
[2025-03-04] MEDS: DIOVAN 80 MG PO (07:59)
[2025-03-04] MEDS: LOPRESSOR 25 MG PO (07:59)
[2025-03-04] MEDS: PROTONIX 40 MG PO (07:59)
[2025-03-04 08:00] VITALS: BMI 22.2
[2025-03-04] MEDS: CYANOCOBALAMIN 1000 MCG IM (08:02)
[2025-03-04 08:19] LABS: Hematocrit 28.4 % (39.0-52.0); Mean Corp Hgb Conc. 31.7 g/dL (33.0-37.0); Mean Corpuscular Hgb 30.5 pg (27.0-31.0); Mean Corpuscular Volume 96.3 fL (80.0-94.0); Mean Platelet Volume 9.8 fL (7.4-10.4); Platelet Count 361 10^3/uL (130-400); Red Blood Cell Count 2.95 10^6/uL (4.70-6.10); Red Cell Dist. Width 14.2 % (11.5-14.5); White Blood Cell Count 10.1 10^3/uL (4.8-10.8)
[2025-03-04 09:01] LABS: Blood Urea Nitrogen 19 mg/dl (9-20); Calcium 8.4 mg/dl (8.4-10.2); Carbon Dioxide 25 mmol/L (22-30); Chloride 113 mmol/L (98-107); Estimated Creatinine Clearance 36 ml/min; Glucose 78 mg/dl (70-99); Potassium 4.1 mmol/L (3.5-5.1); Sodium 146 mmol/L (135-145); eGFR 58.17
--- NOTE | 2025-03-04 10:55 | W.PN.GS2 ---
Today's Communication / Plan
-
Local wound care
dispo planning
Assessment / Plan
-
89-year-old male with a left upper extremity traumatic laceration now admitted with resolving cellulitis but wound dehiscence/sloughing and hematoma in the setting of therapeutic anticoagulation on Eliquis.
Skin edges easily with manual pressure allowing evacuation of underlying hematoma. No purulence. No additional necrotic tissue noted for debridement. No further oozing today.
Plan:
Continue antibiotics as per primary team
Dressing changed at bedside. continue local wound care. no further debridement necessary in the short-term.
Ok to resume Eliquis
Ok to d/c from surgical standpoint, will plan OP follow up
Subjective Data
-
Date of Service: March 04, 2025
Patient seen and examined at bedside with Dr. Guzmán. Dressing changed at bedside. Denies pain.
Objective Data
-
Intake and Output
03/03/25 03/04/25 06
06:59 06:59 06:59
Intake Total 490 / 490 480 / 480
Output Total 300 / 300
Balance 490 / 490 180 / 180
Intake:
Oral fluids 240 / 240 480 / 480
IV piggybacks 250 / 250
Output:
Urine, Voided 300 / 300
Other:
Number of approximated MODERATE 3 1
amounts of urine
Vital Signs
Temp Pulse Resp BP Pulse Ox
97.8 F 66 19 108/73 98
03/04/25 07:00 03/04/25 07:59 03/04/25 07:00 03/04/25 07:59 03/04/25 07:00
Lab Results
03/04/25 07:26
03/04/25 07:26
Calcium 8.4 mg/dl (8.4-10.2) 03/04/25 07:26
Total Bilirubin 0.9 mg/dl (0.2-1.3) 02/27/25 19:55
AST 18 U/L (17-59) 02/27/25 19:55
ALT 11 U/L (0-50) 02/27/25 19:55
Alkaline Phosphatase 67 U/L (38-126) 02/27/25 19:55
Total Protein 6.1 g/dl (6.3-8.2) L 02/27/25 19:55
Albumin 3.3 g/dl (3.5-5.0) L 02/27/25 19:55
Physical Exam
-
NAD
Left forearm wound without active bleeding. Healing skin tears. No purulence noted. Dressing changed.
[2025-03-04 13:55] VITALS: BP 153/81; PULSE 63
[2025-03-04] MEDS: FERRLECIT 110 MG IV (14:12)
--- NOTE | 2025-03-04 15:25 | CM ---
Patient for d/c today. Current w/ [facility]
Daughter and son in law will transport home
IMM verbally reviewed, copy provided, copy on chart
[facility]

Plan: Home with son, CHRISTA [facility]
[2025-03-04 15:50] VITALS: BP 147/74
--- NOTE | 2025-03-04 15:54 | W.PN.HOSP.TC ---
Today's Communication/Plan
-
dc now
Assessment / Plan
Assessment / Plan
Impression:
Left arm cellulitis complicated with multiple abrasions and purulence. Status post fall.
Conditions prior to admission:
Atrial fibrillation of unknown duration and chronicity.
Anticoagulation with Eliquis.
Essential hypertension.
Chronic anemia with iron deficiency
Stage 1 right heel pressure injury, POA
Plan:
Left upper extremity cellulitis with infected forearm hematoma
Status post fall with forearm laceration sutured in outside hospital weeks prior to presentation
Afebrile with normal white count with no evidence of generalized symptoms of infection.
No evidence of deep tissue collection nor of compartment syndrome or necrotizing fasciitis
CT scan findings consistent with small collection
General surgery input appreciated confirming infected hematoma with no additional necrotic tissues and no indication for additional debridement. Remaining suture had been removed
Surgery cleared to resume Eliquis
Wound culture with MSSA and strep pyogenous basis.
Antibiotics consolidated from vancomycin and Zosyn to Unasyn according to sensitivities, will transition to oral Augmentin
Continue wound care
A1c 5.6
Atrial fibrillation of unknown duration and chronicity.
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
Continue metoprolol
On Eliquis MATE FOURTH.
Essential hypertension.
Continue metoprolol, losartan, furosemide
Chronic anemia with baseline hemoglobin around 8�9.
MCV 94.
Mild B12 deficiency, start intramuscular supplementation
Mild iron deficiency baseline, start IV iron, pt received IV Fe this afternoon, prior to dc
Outpatient GI workup recommended
dc to home
reviewed with son by phone
Reviewed with nursing
see dictated note
More than 30 minutes spent in discharge including
Final examination of the patient
Summarizing hospital stay
Instructions for continuing care to all relevant caregivers
Preparation of discharge records, prescriptions, and referral forms
Total time spent (in minutes): 45
Anticipated Discharge: Today
Subjective/Interval History
-
Date of Service: March 04, 2025
Pt has been cleared by surgery to be discharged and is anxiously awaiting dc. Situation reviewed with son by phone
Objective Data
-
Labs:
Laboratory Results
03/04/25
07:26
WBC 10.1
Hgb 9.0 L
Hct 28.4 L
Plt Count 361
Sodium 146 H
Potassium 4.1
Chloride 113 H
Carbon Dioxide 25
BUN 19
Creatinine 1.2
Glucose 78
Calcium 8.4
Vital Signs:
Vital Signs
Temp Pulse Resp BP Pulse Ox
98.4 F 50 18 147/74 94
03/04/25 15:50 03/04/25 15:50 03/04/25 15:50 03/04/25 15:50 03/04/25 15:50
I&O
03/03/25 03/04/25 03/05/25
06:59 06:59 06:59
Intake Total 490 / 490 480 / 480
Output Total 300 / 300
Balance 490 / 490 180 / 180
Review of Systems
-
History Source: Patient and Family (son by phone)
EENT: Reports No Symptoms Reported
Respiratory: Reports No Symptoms
Cardiac: Reports No Symptoms; Denies Chest Pain
Abdomen/GI: Reports No Symptoms
Musculoskeletal: Reports No Symptoms
Skin: Reports Sores (left arm)
Neuro: Reports No Symptoms
Physical Exam
-
General: Well Developed, Well Nourished and No Apparent Distress
HEENT: Normocephalic, Atraumatic and Moist Mucous Membranes
Respiratory: Clear to Auscultation; Negative Wheezes, Rales or Rhonchi
Cardiac: S1/S2 and Irregular Rhythm
GI: Soft, Nontender and Nondistended
Skin: Other (left arm cellulitis wrapped)
--- NOTE | 2025-03-04 16:07 | W.DS.TRANS ---
DC Summary - [employer]
-
Discharge Instructions:
Sleep Apnea Risk Intermediate
Discharge Diagnosis/Procedures Left arm cellulitis
Diet Low Sodium
Activity No strenuous activity
Driving Restrictions Not until seen by your Dr
Bathing Restrictions OK to Shower
Blood Work CBC, CMP in 1-2 weeks
Other Services VN,PT
Instructions:
Stand-Alone Forms:
Changes to Home Medications: Yes
Discharge Medications:
DC Medications w/original date entered in [employer]
apixaban 5 mg tablet (Eliquis) 5 mg PO BID Blood Clot Prevention/Tx 02/27/25
furosemide 20 mg tablet 20 mg PO DAILY Fluid Retention/Swelling 02/27/25
metoprolol tartrate 25 mg tablet 25 mg PO BID Blood Pressure 02/27/25
pantoprazole 40 mg tablet,delayed release 40 mg PO DAILY Gastrointestinal Issue 02/27/25
valsartan 80 mg tablet 80 mg PO BID Blood Pressure 02/27/25
acetaminophen 325 mg tablet 650 mg (2 x 325 mg) PO Q4HPRN PRN mild pain/FRIEDMAN/temp> 100.4F #30 tabs 03/04/25
amoxicillin 875 mg-potassium clavulanate 125 mg tablet 1 tab PO Q12H #20 tabs 03/04/25
sennosides 8.6 mg-docusate sodium 50 mg tablet 1 tab PO BIDPRN PRN constipation #20 tabs 03/04/25
Home Medication Changes
Augmentin for 10 days
Pending Results: No
== END 2025-03-04 16:25 | disposition home health service (06) | DRG 603 ==
LOC: 4 WEST ACU 14:27
PROVIDERS: Internal Medicine; Nurse Practitioner; Registered Nurse; ADMITTING PHYSICIAN Internal Medicine; ATTENDING PHYSICIAN Internal Medicine; CONSULT PHYSICIAN Surgery; EMERGENCY PHYSICIAN Emergency Medicine; FAMILY PHYSICIAN Family Medicine
DX: L03.114 Cellulitis of left upper limb (principal); Z79.01 Long term (current) use of anticoagulants; I48.91 Unspecified atrial fibrillation; D50.9 Iron deficiency anemia, unspecified; I10 Essential (primary) hypertension; L89.611 Pressure ulcer of right heel, stage 1; K21.9 Gastro-esophageal reflux disease without esophagitis; S51.812A Laceration without foreign body of left forearm, initial encounter; W19.XXXA Unspecified fall, initial encounter
CPT/HCPCS: 73090; 73201; 80048; 80053; 82607; 83036; 83540; 83550; 83605; 85025; 85027; 85045; 87070; 87077; 87147; 87186; 87205; 93005; 96361; 96365; 97162; 97166; 99285; J2916; Q9967

== ENCOUNTER → 2025-03-06 10:41 | Outpatient (REF) | payer OTHER, SELFPAY | LOC: WOUND 10:41 | PROVIDERS: ATTENDING PHYSICIAN Surgery; FAMILY PHYSICIAN Family Medicine | DX: S51.822A Laceration with foreign body of left forearm, initial encounter (principal); S50.12XA Contusion of left forearm, initial encounter; I48.21 Permanent atrial fibrillation; I25.118 Atherosclerotic heart disease of native coronary artery with other forms of angina pectoris; I25.10 Atherosclerotic heart disease of native coronary artery without angina pectoris; M35.3 Polymyalgia rheumatica; Z79.01 Long term (current) use of anticoagulants; W19.XXXA Unspecified fall, initial encounter | CPT/HCPCS: 11042; 99204 ==

== ENCOUNTER → 2025-03-13 10:31 | Outpatient (REF) | payer OTHER, SELFPAY | LOC: WOUND 10:31 | PROVIDERS: ATTENDING PHYSICIAN Surgery; FAMILY PHYSICIAN Family Medicine | DX: S51.822A Laceration with foreign body of left forearm, initial encounter (principal); S50.12XA Contusion of left forearm, initial encounter; I48.21 Permanent atrial fibrillation; I25.118 Atherosclerotic heart disease of native coronary artery with other forms of angina pectoris; I25.10 Atherosclerotic heart disease of native coronary artery without angina pectoris; M35.3 Polymyalgia rheumatica; W19.XXXA Unspecified fall, initial encounter | CPT/HCPCS: 11042 ==

== ENCOUNTER → 2025-03-24 09:02 | Outpatient (REF) | payer OTHER, SELFPAY | LOC: WOUND 09:02 | PROVIDERS: ATTENDING PHYSICIAN Surgery; FAMILY PHYSICIAN Family Medicine | DX: S51.822A Laceration with foreign body of left forearm, initial encounter (principal); S50.12XA Contusion of left forearm, initial encounter; I48.21 Permanent atrial fibrillation; I25.118 Atherosclerotic heart disease of native coronary artery with other forms of angina pectoris; I25.10 Atherosclerotic heart disease of native coronary artery without angina pectoris; M35.3 Polymyalgia rheumatica; Z79.01 Long term (current) use of anticoagulants; W19.XXXA Unspecified fall, initial encounter | CPT/HCPCS: 11042 ==

== ENCOUNTER → 2025-04-04 10:12 | Outpatient (REF) | payer OTHER, SELFPAY | LOC: WOUND 10:12 | PROVIDERS: ATTENDING PHYSICIAN Surgery; FAMILY PHYSICIAN Family Medicine | DX: S51.822A Laceration with foreign body of left forearm, initial encounter (principal); S50.12XA Contusion of left forearm, initial encounter; I48.21 Permanent atrial fibrillation; I25.118 Atherosclerotic heart disease of native coronary artery with other forms of angina pectoris; I25.10 Atherosclerotic heart disease of native coronary artery without angina pectoris; M35.3 Polymyalgia rheumatica; Z79.01 Long term (current) use of anticoagulants; W19.XXXA Unspecified fall, initial encounter | CPT/HCPCS: 99212 ==